=== PATIENT | female | born 1970 ===

== ENCOUNTER 2018-04-16 05:57 | Day surgery (SDC) | payer OTHER ==
[~2018-04-16] VITALS: Ht 162.6 cm; Wt 67.1 kg
[~2018-04-16 05:57] MED LIST: CALCA400CH PO; CARI350 PO; CEFD300 PO; CEFP200 PO; DULO60 PO; HYDACE5 PO; HYDACE7.5 PO; HYDPAM100 PO; HYDPAM50 PO; Hydrocodone-Ap1 EA26 PO; IBUP600 PO; Norco 7.5-3251 EACH PO; ONDA4ODT MM; PAROEX473 ML MM; PRAM.125 PO; RANITIDINE PO; TIZANIDINE HCL2 MG PO; Zanaflex4 M1 PO; Zofran4 MG PO
== END 2018-04-16 08:39 | disposition home or self-care (01) ==
LOC: ORSCMMR 05:57 → ORD 07:30 → ORSCMMR 07:30
PROVIDERS: Internal Medicine Gastroenterology
PROC: 0DB68ZX Excision of Stomach, Via Natural or Artificial Opening Endoscopic, Diagnostic (ICD-10-PCS; principal; 2018-04-16 07:30)
PROC: 0DB88ZX Excision of Small Intestine, Via Natural or Artificial Opening Endoscopic, Diagnostic (ICD-10-PCS; principal; 2018-04-16 07:30)
DX: R10.9 Unspecified abdominal pain (principal); D64.9 Anemia, unspecified; R19.4 Change in bowel habit; R11.2 Nausea with vomiting, unspecified; F17.210 Nicotine dependence, cigarettes, uncomplicated; Z79.899 Other long term (current) drug therapy
CPT/HCPCS: 88305; 88342; J3010; J7120

== ENCOUNTER → 2018-06-22 | Outpatient (CLI) | payer OTHER ==
[2018-06-22 13:24] LABS: BASOPHILS ABSOLUTE AUTO 0.06 K/mm3 (0.00-0.23); BASOPHILS PERCENT AUTO 0 % (0-2); EOSINOPHILS ABSOLUTE AUTO 0.06 K/mm3 (0.00-0.68); EOSINOPHILS PERCENT AUTO 0 % (0-6); Hematocrit 41.5 % (33.0-51.0); Hemoglobin 12.8 g/dL (11.5-16.0); IMMATURE GRAN ABSOLUTE AUTO 0.19 K/mm3 (0.00-0.10); IMMATURE GRAN PERCENT AUTO 1 % (0-1); LYMPHOCYTES ABSOLUTE AUTO 0.46 K/mm3 (0.84-5.20); LYMPHOCYTES PERCENT AUTO 2 % (21-46); MONOCYTES ABSOLUTE AUTO 0.17 K/mm3 (0.16-1.47); MONOCYTES PERCENT AUTO 1 % (4-13); Mean Corpuscular HGB 28.5 pg (26.0-34.0); Mean Corpuscular HGB Conc 30.8 g/dL (31.5-36.5); Mean Corpuscular Volume 92 fL (80-100); Mean Platelet Volume 9.5 fL (9.1-12.4); NEUTROPHILS ABSOLUTE AUTO 18.25 K/mm3 (1.96-9.15); NEUTROPHILS PERCENT AUTO 95 % (41-73); Platelet Count 545 K/mm3 (150-400); RDW Coefficient Variation 19.2 % (11.7-14.2); Red Blood Cell Count 4.49 M/mm3 (3.80-5.20); White Blood Cell Count 19.19 K/mm3 (4.00-11.30)
== END | disposition home or self-care (01) ==
LOC: LAB SHORT 10:59 → LAB 10:59
PROVIDERS: Internal Medicine Hematology & Oncology
DX: D75.81 Myelofibrosis (principal)
CPT/HCPCS: 85025

== ENCOUNTER → 2018-10-08 | Outpatient (CLI) | payer OTHER ==
[2018-10-10 14:06] LABS: HPV 16 Negative (Negative); HPV 18 Negative (Negative); HPV OTHER HR TYPES Negative (Negative)
== END | disposition home or self-care (01) ==
LOC: LAB SHORT 19:42 → LAB 19:42
PROVIDERS: Physician Assistant
DX: Z12.4 Encounter for screening for malignant neoplasm of cervix (principal)
CPT/HCPCS: 87624; G0145

== ENCOUNTER → 2019-11-05 | Outpatient (CLI) | payer OTHER | END | disposition home or self-care (01) | LOC: LAB EV 11:55 → LAB SHORT 11:55 | DX: N39.0 Urinary tract infection, site not specified (principal) | CPT/HCPCS: 87077; 87086; 87186 ==

== ENCOUNTER 2020-08-17 07:50 | Day surgery (SDC) | payer MEDICARE, OTHER ==
[~2020-08-17] VITALS: Ht 162.6 cm; Wt 61.8 kg
[~2020-08-17 07:50] MED LIST changes: +ALBU90OI INH; +CYCLOBENZAPRINE5 MG PO; +Flonase 0.05% N16 GM; +HYDSUL200 PO; +IBUP800 PO; +MYCOPHENOLATE500 M2 PO; +OMEPRAZOLE20 M1 PO; +TRAZ50 PO
== END 2020-08-17 10:20 | disposition home or self-care (01) ==
LOC: ORSCSDS 07:50
PROVIDERS: Internal Medicine Gastroenterology
PROC: 0DBL8ZX Excision of Transverse Colon, Via Natural or Artificial Opening Endoscopic, Diagnostic (ICD-10-PCS; principal; 2020-08-17 09:15)
PROC: 0DBH8ZX Excision of Cecum, Via Natural or Artificial Opening Endoscopic, Diagnostic (ICD-10-PCS; principal; 2020-08-17 09:15)
PROC: 0DB78ZX Excision of Stomach, Pylorus, Via Natural or Artificial Opening Endoscopic, Diagnostic (ICD-10-PCS; principal; 2020-08-17 09:15)
PROC: 0DB98ZX Excision of Duodenum, Via Natural or Artificial Opening Endoscopic, Diagnostic (ICD-10-PCS; principal; 2020-08-17 09:15)
PROC: 0DBM8ZX Excision of Descending Colon, Via Natural or Artificial Opening Endoscopic, Diagnostic (ICD-10-PCS; principal; 2020-08-17 09:15)
DX: Z12.11 Encounter for screening for malignant neoplasm of colon (principal); K90.0 Celiac disease; K21.00 Gastro-esophageal reflux disease with esophagitis, without bleeding; D12.3 Benign neoplasm of transverse colon; D12.0 Benign neoplasm of cecum; D12.4 Benign neoplasm of descending colon; K64.1 Second degree hemorrhoids; K44.9 Diaphragmatic hernia without obstruction or gangrene; F17.210 Nicotine dependence, cigarettes, uncomplicated; Z79.899 Other long term (current) drug therapy
CPT/HCPCS: 88305; 88342; J2704; J7120

== ENCOUNTER → 2021-11-12 | Outpatient (CLI) | payer MEDICARE, OTHER ==
[2021-11-17 15:10] LABS: HPV 16 Negative (Negative); HPV 18 Negative (Negative); HPV OTHER HR TYPES Negative (Negative)
== END | disposition home or self-care (01) ==
LOC: LAB 15:02 → LAB SHORT 15:02
PROVIDERS: Physician Assistant
DX: Z01.419 Encounter for gynecological examination (general) (routine) without abnormal findings (principal)
CPT/HCPCS: 87624; 88175

== ENCOUNTER 2022-09-08 09:54 | Inpatient (IN) | payer MEDICARE, OTHER ==
[~2022-09-08] VITALS: Ht 162.6 cm; Wt 50.6 kg
[2022-09-08 10:21] LABS: BASOPHILS ABSOLUTE AUTO 0.09 K/mm3 (0.00-0.23); BASOPHILS PERCENT AUTO 0 % (0-2); EOSINOPHILS PERCENT AUTO 0 % (0-6); Hematocrit 30.5 % (33.0-51.0); IMMATURE GRAN ABSOLUTE AUTO 1.43 K/mm3 (0.00-0.10); IMMATURE GRAN PERCENT AUTO 4 % (0-1); LYMPHOCYTES ABSOLUTE AUTO 1.21 K/mm3 (0.84-5.20); LYMPHOCYTES PERCENT AUTO 3 % (21-46); MONOCYTES ABSOLUTE AUTO 0.76 K/mm3 (0.16-1.47); MONOCYTES PERCENT AUTO 2 % (4-13); Mean Corpuscular HGB 24.6 pg (26.0-34.0); Mean Corpuscular HGB Conc 32.8 g/dL (31.5-36.5); Mean Corpuscular Volume 75 fL (80-100); Mean Platelet Volume 9.5 fL (9.1-12.4); NEUTROPHILS ABSOLUTE AUTO 32.25 K/mm3 (1.96-9.15); NEUTROPHILS PERCENT AUTO 90 % (41-73); Platelet Count 526 K/mm3 (150-400); RDW Coefficient Variation 16.8 % (11.7-14.2); RDW Standard Deviation 45.9 fL (35.1-46.3); Red Blood Cell Count 4.06 M/mm3 (3.80-5.20); White Blood Cell Count 35.74 K/mm3 (4.00-11.30)
[2022-09-08] MEDS ORDERED: CYMBALTA30 M2 PO (11:03)
--- NOTE | 2022-09-08 11:05 | NUR ---
"Spiritual Care | Pt. assist Pts. mother (caregiver) is currently a Pt. in our ICU. Pt. displays evidence of anxiety. Through theraputic listening and pastoral support, Pt. displays evidence of confidence and trust. Will continue to be avilable to support the Pt. and the family. Pt. verbalized gratitude for the spiritual care visit."
[2022-09-08 12:08] LABS: Albumin, Blood 2.1 g/dL (3.4-5.0); Albumin/Globulin Ratio 0.4 (0.8-1.8); Bun/Creatinine Ratio 28.5 (12.0-20.0); Creatinine, Blood 0.56 mg/dL (0.40-1.00); Potassium, Blood 4.1 mmol/L (3.5-5.5); Total Protein, Blood 7.1 g/dL (6.4-8.2)
[2022-09-08 12:53] LABS: Base Excess Venous -1.4 mmol/L; Bicarbonate Venous 23.3 mmol/L (24.0-30.0); pH Blood Venous 7.41 (7.34-7.37)
[2022-09-08 14:51] LABS: Influenza A, PCR NEGATIVE (NEGATIVE); Influenza B, PCR NEGATIVE (NEGATIVE); Resp Syncytial Virus, PCR NEGATIVE (NEGATIVE); SARS-Cov-2 (COVID-19) PCR, MMC NEGATIVE (NEGATIVE)
--- NOTE | 2022-09-08 17:40 | NUR ---
"Spiritual Care | follow up Briefly touched base with Pt. after she got to [id number]. Pt. is pleasant, and verbalized gratitude for checking in on her and her mom (ICU5). Will remain available to Pt."
[2022-09-08 20:00] VITALS: BP 109/68
[2022-09-08 20:01] VITALS: BP 109/68
[2022-09-08 23:58] VITALS: BP 109/62
--- NOTE | 2022-09-09 01:48 | NUR ---
FLUIDS AND VANCO INFUSING PER ORDERS AFTER CALL TO DR ALLEN TO DISCUSS POSITIVE BLOOD CULTURE AND PT'S CONTINUED TACHYCARDIA IN 110'S WITH SODIUM OF 125 PRIOR IN ER. DISCUSSED CONCERN FOR OVERLOAD BY PRIOR PHYSICIAN. PT SLEEPING HEAVILY, MOANS OCCASIONALLY, AWAKENS ONLY WITH THIS RN CALLING NAME LOUDLY AND RUBBING CHEST. ON 2 L OF O2 D/T SATS 88-89% ON RA WHILE ASLEEP, CURRENTLY 97% ON 2 L O2, DECREASED TO 1 L O2. SOME COARSE/CRACKLES IN LOWER LOBES, OTHERWISE DIM/CLEAR IN UPPER LOBES.
[2022-09-09 04:09] VITALS: BP 93/88
[2022-09-09 04:19] LABS: BASOPHILS ABSOLUTE AUTO 0.04 K/mm3 (0.00-0.23); BASOPHILS PERCENT AUTO 0 % (0-2); EOSINOPHILS ABSOLUTE AUTO 0.04 K/mm3 (0.00-0.68); EOSINOPHILS PERCENT AUTO 0 % (0-6); Hematocrit 26.3 % (33.0-51.0); Hemoglobin 8.7 g/dL (11.5-16.0); IMMATURE GRAN ABSOLUTE AUTO 0.46 K/mm3 (0.00-0.10); IMMATURE GRAN PERCENT AUTO 2 % (0-1); LYMPHOCYTES ABSOLUTE AUTO 1.74 K/mm3 (0.84-5.20); LYMPHOCYTES PERCENT AUTO 8 % (21-46); MONOCYTES ABSOLUTE AUTO 0.48 K/mm3 (0.16-1.47); MONOCYTES PERCENT AUTO 2 % (4-13); Mean Corpuscular HGB 24.7 pg (26.0-34.0); Mean Corpuscular HGB Conc 33.1 g/dL (31.5-36.5); Mean Corpuscular Volume 75 fL (80-100); NEUTROPHILS ABSOLUTE AUTO 19.68 K/mm3 (1.96-9.15); NEUTROPHILS PERCENT AUTO 88 % (41-73); Platelet Count 434 K/mm3 (150-400); RDW Coefficient Variation 16.1 % (11.7-14.2); RDW Standard Deviation 43.8 fL (35.1-46.3); Red Blood Cell Count 3.52 M/mm3 (3.80-5.20); White Blood Cell Count 22.44 K/mm3 (4.00-11.30)
[2022-09-09 04:37] LABS: Albumin, Blood 1.8 g/dL (3.4-5.0); Albumin/Globulin Ratio 0.4 (0.8-1.8); Bilirubin, Total 0.8 mg/dL (0.1-1.0); Bun/Creatinine Ratio 29.9 (12.0-20.0); Calcium, Blood 8.3 mg/dL (8.5-10.1); Creatinine, Blood 0.5 mg/dL (0.40-1.00); Globulin, Blood 4.2 g/dL (2.2-4.0); Potassium, Blood 3.2 mmol/L (3.5-5.5)
[2022-09-09 07:32] VITALS: BP 98/57
--- NOTE | 2022-09-09 07:41 | NUR ---
SHIFT SUMMARY PT BECAME EXTREMELY LETHARGIC FOLLOWING ADMIN OF NIGHT TIME MEDICATIONS. PT DIFFICULT TO AWAKEN WITHOUT REPEATED PRESSURE TO SHOULDER/CHEST WITH LOUD CALLING OF HER NAME. PT MAINTAINED SATS WHILE SLEEPING HEAVILY. SATS >92% ON 1-2 L O2 VIA NC T/O SHIFT. O2 PLACED D/T PT SATS 88-89% ON RA. PT FREQUENTLY TALKED IN ROOM TO HERSELF, SEEMED TO BE TALKING ABOUT SITUATIONS ONGOING AT HOME, SPEAKING TO HER DOGS, PT SEEMED AWARE THAT SHE WAS DOING THIS AND WHEN RN POINTED IT OUT PT ASKED "AM I DOING IT AGAIN". FLUIDS STARTED PER PROVIDER ORDER AFTER THIS RN CALLS TO NOTIFY OF CONTINUED TACHYCARDIA IN 110'S LAST NIGHT AND CONCERN FOR SEPSIS D/T PNEUMONIA DX AND GRAM POSITIVE COCCI RESULT. FLUIDS STARTED AND VANCO ADMIN PER ORDER, PT HAD INCREASING CRACKLES IN LOWER LOBES AND A FREQUENT COUGH THIS AM. SATS UNCHANGED. PROVIDER ORDER TO STOP THE FLUIDS FOR NOW AND TO CONTINUE TO MONITOR THIS AM FOR WORSENED OVERLOAD. PT MORE AWAKE THIS AM, SITTING UP AND ABLE TO ANSWER QUESTIONS MORE READILY, ABLE TO TAKE MED THIS AM WITHOUT ISSUE.
--- NOTE | 2022-09-09 10:36 | NUR ---
"Spiritual Care | Pt. request Pt. is awake in bed and welcomed my visit. Pt. is unsettled about being sick, but is otherwise pleasant. Pt. displays evidence of being guarded. Condered matters of family support. Pt. verbalized her brother from [place], has been in to see her. Pt. verbalizes no other concerns, and displays evidence of being somnolent. Pt. verbalized gratitude for the spiritual care visit. Will remain available to Pt. and Pts. mother who is currently in ICU5."
[2022-09-09 11:35] VITALS: BP 97/59
[2022-09-09 15:20] VITALS: BP 103/59
--- NOTE | 2022-09-09 17:08 | NUR ---
SHIFT SUMMARY This RN assumed care at 0700. vital signs stable and have remained stable throughout this RN shift. febrile this afternoon and recieved medications per emar and upon reassessment patient was afebrile. tele sr-st. spo2 >90% on 2l nc, this RN attempted to titrate back to room air, but spo2 was below 88%. patient is sleepy, but arousable, and is oriented x4. patient has slept off and on most of the day and states it has been like this for months at home. patient reports no chest pain/pressure, shortness of breath, or pain. see shift assessment for further detials. no acute changes. plan of care is up to date.
[2022-09-09 20:03] VITALS: BP 148/131
[2022-09-10] VITALS (10 sets, daily range): BP systolic 72–106; BP diastolic 49–66
--- NOTE | 2022-09-10 02:08 | NUR ---
NURSE NOTE--PHYSICAN CONTACT CALL FROM DR CINTRON. REQUESTED VITALS AND RETURN CALL. CALL BACK TO DR CINTRON TO REVIEW. REPORTED PT MAP OF 68 NEW ORDER IF PT FALLS BELOW MAP OF 65 START NS AT 100ML HOUR. PT HAS BEEN AFEBRILE AND SAT 94% ON 2L. DR DUNCAN TO REMOVE O2. ATTEMPT TO REMOVE O2 AND PT DESAT TO MID 80'S. DIFFICULT TO GET A GOOD SAT READ ON THIS PAITENT; USING NASAL AND EAR PROBE TO GET O2 READINGS. NOT SURE THEY ARE ACCURATE. PT LETHARGIC AND SLEEPY.
[2022-09-10 04:13] LABS: BASOPHILS ABSOLUTE AUTO 0.02 K/mm3 (0.00-0.23); BASOPHILS PERCENT AUTO 0 % (0-2); EOSINOPHILS ABSOLUTE AUTO 0.05 K/mm3 (0.00-0.68); EOSINOPHILS PERCENT AUTO 1 % (0-6); Hematocrit 26.2 % (33.0-51.0); Hemoglobin 8.4 g/dL (11.5-16.0); IMMATURE GRAN ABSOLUTE AUTO 0.23 K/mm3 (0.00-0.10); IMMATURE GRAN PERCENT AUTO 2 % (0-1); LYMPHOCYTES ABSOLUTE AUTO 0.98 K/mm3 (0.84-5.20); LYMPHOCYTES PERCENT AUTO 10 % (21-46); MONOCYTES ABSOLUTE AUTO 0.39 K/mm3 (0.16-1.47); MONOCYTES PERCENT AUTO 4 % (4-13); Mean Corpuscular HGB 24.5 pg (26.0-34.0); Mean Corpuscular HGB Conc 32.1 g/dL (31.5-36.5); Mean Corpuscular Volume 76 fL (80-100); Mean Platelet Volume 8.9 fL (9.1-12.4); NEUTROPHILS ABSOLUTE AUTO 8.01 K/mm3 (1.96-9.15); NEUTROPHILS PERCENT AUTO 83 % (41-73); Platelet Count 454 K/mm3 (150-400); RDW Coefficient Variation 16.2 % (11.7-14.2); RDW Standard Deviation 45.1 fL (35.1-46.3); Red Blood Cell Count 3.43 M/mm3 (3.80-5.20); White Blood Cell Count 9.68 K/mm3 (4.00-11.30)
[2022-09-10 04:46] LABS: Albumin, Blood 1.7 g/dL (3.4-5.0); Albumin/Globulin Ratio 0.4 (0.8-1.8); Bilirubin, Total 0.4 mg/dL (0.1-1.0); Bun/Creatinine Ratio 23.7 (12.0-20.0); Calcium, Blood 8.5 mg/dL (8.5-10.1); Creatinine, Blood 0.51 mg/dL (0.40-1.00); Globulin, Blood 4.4 g/dL (2.2-4.0); Potassium, Blood 3.7 mmol/L (3.5-5.5); Total Protein, Blood 6.1 g/dL (6.4-8.2)
--- NOTE | 2022-09-10 05:38 | NUR ---
PITTING MACHINE OPERATOR SUMMARY PT LETHARGIC BUT WAKEFUL T/O THE NIGHT. PT TALKING TO THINGS/PEOPLE NOT IN THE ROOM. PT RESPONDS APPROPRIATELY TO QUESTIONS AND FOLLOWS DIRECTIONS. CALL FROM . SEE NOTE. NURSE NOTIFY ORDER PER DR CINTRON TO START NS 100 MLS HOUR IF MAP BELOW 65. PT ON 1 L 02 NC DOWN FROM 2L. PT WILL HAVE SPONTANEOUS DESATS DOWN INTO THE 80'S THAT WILL RECOVER WHEN ENCOUAGING DEEP BREATHS. DIFFCULT TO GET GOOD READ WITH O2 SATS; PT WILL SIT UP FREQUENTLY T/O THE NIGHT TO MAKE BREATHING EASIER AND TO COUGH/CLEAR LUNGS. OCCASIONALLY DIAPHORETIC. PT HAS NOT USED CALL LIGHT TO MAKE NEEDS KNOWN.
--- NOTE | 2022-09-10 17:51 | NUR ---
SHIFT SUMMARY This RN assumed care at 0700. patient hypotensive. tele sr-st with pvc. patient is alert, but sleepy, oriented x4. patient titrated back to room air. pateint reports pain in waist when coughing and back, medicated per emar. patient reports no chest pain/pressure. pateint reprots no shortness of breath. see shift assessment for further detials. MD Medellinani in to see patient and discussed plan of care. plan of care is up to date.
--- NOTE | 2022-09-10 19:33 | NUR ---
ASSUMED CARE PATIENT IN BED A&OX4, NO FAMILY AT BEDSIDE.
[2022-09-11] VITALS (8 sets, daily range): BP systolic 86–124; BP diastolic 44–62
--- NOTE | 2022-09-11 06:23 | NUR ---
SHIFT SUMMARY PATIENT CONTINUES TO BE SLEEPY. WAKES APPOPRIATELY TO VOICE. COUGHING FREQUENTLY
--- NOTE | 2022-09-11 10:58 | NUR ---
CALLED DR. CINTRON AND NOTIFIED HIM THAT THE PATIENT HASNT HAD A BM SINCE HER ADMISSION ON 09/08/22. PATIENT STATES THAT SHE CAN GO 1-2 WEEKS WITHOUT HAVING A TBM WHILE AT HOME AND THAT IS "NORMAL FOR HER". SHE DOESNT TAKE ANY BOWEL CARE MEDS AT HOME.
[2022-09-11] MEDS ORDERED: BUPRENORPHINE HC2 MG SL (12:40)
[2022-09-11] MEDS ORDERED: DULERA 100 MCG/13 GM INH (12:42)
[2022-09-11] MEDS ORDERED: CEFD300 PO (12:44)
== END 2022-09-11 13:35 | disposition home or self-care (01) | DRG 871 ==
LOC: ER 09:54 → PCU 14:34
PROVIDERS: Student in an Organized Health Care Education/Training Program; ADMIT Internal Medicine
DX: A40.3 Sepsis due to Streptococcus pneumoniae (principal); J18.9 Pneumonia, unspecified organism; J44.0 Chronic obstructive pulmonary disease with (acute) lower respiratory infection; D84.89 Other immunodeficiencies; E87.1 Hypo-osmolality and hyponatremia; Z20.822 Contact with and (suspected) exposure to COVID-19; I95.9 Hypotension, unspecified; D89.89 Other specified disorders involving the immune mechanism, not elsewhere classified; I08.1 Rheumatic disorders of both mitral and tricuspid valves; M79.7 Fibromyalgia; E87.8 Other disorders of electrolyte and fluid balance, not elsewhere classified; M19.90 Unspecified osteoarthritis, unspecified site; F17.210 Nicotine dependence, cigarettes, uncomplicated; Z98.51 Tubal ligation status; Z88.8 Allergy status to other drugs, medicaments and biological substances; Z79.51 Long term (current) use of inhaled steroids; Z79.899 Other long term (current) drug therapy
CPT/HCPCS: 0241U; 36415; 71046; 80053; 82803; 83605; 83880; 84145; 85025; 87040; 93005; 93010; 93306; 94640; 94664; 94760; 94762; 96365; 96367; 96375; 99285-25; A9270; J0456; J0696; J1650; J1720; J1885; J3370; J7030; J7050; J7517

== ENCOUNTER → 2022-09-13 | Outpatient (CLI) | payer MEDICARE, OTHER ==
[~2022-09-13] MED LIST changes: +BUPRENORPHINE HC2 MG SL; +CYMBALTA30 M2 PO; +DULERA 100 MCG/13 GM INH
[2022-09-14 14:56] LABS: Stool Occult Bld Immuno 1 Positive (NEGATIVE)
== END ==
LOC: LAB 09:30 → LAB SHORT 09:30
PROVIDERS: Physician Assistant
DX: D64.9 Anemia, unspecified (principal)
CPT/HCPCS: 82274

== ENCOUNTER 2024-06-07 05:54 | Day surgery (SDC) | payer MEDICARE, OTHER ==
[~2024-06-07 05:54] MED LIST changes: +ONDA4 PO; +SILD25T PO; +SYMBICORT 160-4.6 GM INH
[2024-06-07] MEDS ORDERED: METTREX2.5 PO (06:33)
[2024-06-07] MEDS ORDERED: MIRT15 PO (06:34)
[2024-06-07] MEDS ORDERED: NS 1,000 ML IV ONE (06:41)
[2024-06-07] MEDS ORDERED: Benzocaine Oral Spray 0.5ML UD ONE (06:47)
[2024-06-07 06:49] VITALS: BP 132/80
[2024-06-07 07:14] VITALS: BP 92/61
[2024-06-07 07:16] VITALS: BP 106/69
--- NOTE | 2024-06-07 07:16 | NUR ---
ASSUMED CARE FROM ANESTHESIA. PT AWAKE AND VERBALIZING WELL.
[2024-06-07 07:18] VITALS: BP 102/66
[2024-06-07 07:26] VITALS: BP 90/58
--- NOTE | 2024-06-07 08:00 | NUR ---
PT VERBALIZED UNDERSTANDING OF WRITTEN AND VERBAL D/C INST. IV REMOVED. PT TAKING PO FLUIDS /S DIFFICULTY. PT TAKEN OUT OF THE HRT CENTER /S DIFFICULTY.
[2024-06-07] MEDS ORDERED: Propofol 10mg/ml 20 ml Vial (Procedural) IV ONE (08:48)
[2024-06-07] MEDS ORDERED: Lidocaine 2% 5 ML SDV INJ ONE (08:48)
== END 2024-06-07 23:00 | disposition home or self-care (01) ==
LOC: ORSCMMR 05:54 → MHTC 05:54 → ORSCMMR 05:55 → ORD 07:00 → ORSCMMR 07:00
DX: I34.0 Nonrheumatic mitral (valve) insufficiency (principal); J84.9 Interstitial pulmonary disease, unspecified; J43.2 Centrilobular emphysema; M35.89 Other specified systemic involvement of connective tissue; I73.00 Raynaud's syndrome without gangrene; Z79.899 Other long term (current) drug therapy; Z88.8 Allergy status to other drugs, medicaments and biological substances
CPT/HCPCS: 93312; 93325; A9270; J2704; J7030

== ENCOUNTER → 2024-12-09 | Outpatient (CLI) | payer MEDICARE, OTHER ==
[~2024-12-09] MED LIST changes: +METTREX2.5 PO; +MIRT15 PO
== END ==
LOC: LAB 14:32 → LAB SHORT 14:32
DX: N39.0 Urinary tract infection, site not specified (principal)
CPT/HCPCS: 87077; 87086; 87186